=== PATIENT | female | born 2000 | race Caucasian/White ===

== ENCOUNTER → 2020-03-16 | Outpatient (CLI) | payer BC | LOC: KOH-I 09:17 | DX: M54.2 Cervicalgia (principal); M41.9 Scoliosis, unspecified | CPT/HCPCS: 72040; 72082 ==

== ENCOUNTER 2020-05-01 06:15 | Emergency (ER) | payer BC ==
[2020-05-01 07:38] LABS: HEMOGLOBIN 13.5 gm/dl (12.3-15.3); RED BLOOD COUNT 4.68 M/UL (4.00-5.10); WHITE BLOOD COUNT 7.5 K/UL (4.5-11.0)
[2020-05-01 07:54] LABS: BUN/CREATININE RATIO 16 (0-10)
== END 2020-05-01 08:49 | disposition home or self-care (01) ==
LOC: ER1 06:15
PROVIDERS: Family Medicine
DX: R10.9 Unspecified abdominal pain (principal); M54.9 Dorsalgia, unspecified; R51.9 Headache, unspecified; Z88.1 Allergy status to other antibiotic agents
CPT/HCPCS: 80053; 81001; 83690; 84703; 85025; 99284

== ENCOUNTER → 2020-05-09 | Outpatient (CLI) | payer SELFPAY | LOC: KOH-I 09:24 | DX: M41.25 Other idiopathic scoliosis, thoracolumbar region (principal) | CPT/HCPCS: 72146; 72148 ==

== ENCOUNTER → 2020-06-27 | Outpatient (CLI) | payer SELFPAY ==
[2020-06-28 09:16] LABS: VITAMIN D, 25-HYDROXY 10.6 ng/mL (30.0-100.0)
== END ==
LOC: LAB 09:47
PROVIDERS: Nurse Practitioner Family
DX: M25.50 Pain in unspecified joint (principal); R53.83 Other fatigue; M79.10 Myalgia, unspecified site; D89.9 Disorder involving the immune mechanism, unspecified; R76.8 Other specified abnormal immunological findings in serum
CPT/HCPCS: 36415; 82550; 82728; 83520; 84439; 84443; 86200